=== PATIENT | female | born 1995 | race Caucasian/White ===

== ENCOUNTER 2016-06-16 00:33 | Emergency (ER) | payer SELFPAY ==
[~2016-06-16] VITALS: Ht 157.5 cm; Wt 45.0 kg
[~2016-06-16 00:33] MED LIST: CIPR500T4 PO; NITR-58 PO; PHEN-537 PO; PHEN-538 PO
[2016-06-16 00:36] VITALS: Ht 157.5 cm; Wt 45.0 kg
== END 2016-06-16 04:50 | disposition left against medical advice (07) ==
LOC: FTE 00:33
DX: Z53.21 Procedure and treatment not carried out due to patient leaving prior to being seen by health care provider (principal)

== ENCOUNTER 2016-08-31 12:22 | Emergency (ER) | payer OTHER ==
[~2016-08-31] VITALS: Ht 157.5 cm; Wt 49.5 kg
[2016-08-31 12:25] VITALS: Ht 157.5 cm; Wt 49.5 kg
[2016-08-31 13:50] LABS: URINE BLOOD (Dip) POC 3+ (NEGATIVE)
[2016-08-31] MEDS ORDERED: NITR-58 PO (15:23)
[2016-08-31] MEDS ORDERED: PHEN-537 PO (15:23)
[2016-08-31 15:37] VITALS: BP 116/66; PULSE 70; RESP 16
--- NOTE | 2016-08-31 16:19 | ERD ---
ER Documentation Chief Complaint Date/Time DATE: 08/31/16 TIME: 16:16 Chief Complaint painful urination today HPI 20-year-old female patient with no significant past medical history presents the ED complaining of dysuria that started this morning. Describes the pain as a burning sensation. States that she gets irregular menses because she has an IUD. Reports that she has gotten recurrent UTIs due to the IUD that is placed. Denies any vaginal discharge or vaginal bleeding. Reports that she has 1 sexual partner. States that she is sexually active. Reports that she is not concerned about STDs however she does want her urine to be tested for gonorrhea and chlamydia because of her recurrent urinary tract infections. Denies any abdominal pain, nausea, vomiting, diarrhea, constipation, pelvic pain, fever, flank pain. ROS All systems reviewed and are negative except as per history of present illness. Medications Home Meds Active Scripts Nitrofurantoin Monohyd Macrocr* (Macrobid*) 100 Mg Capsr, 100 MG PO BID for 7 Days, CAP Prov:WILLIS VALADEZ PA-C 08/31/16 Phenazopyridine Hcl* (Pyridium*) 100 Mg Tab, 100 MG PO TID Y for URINARY PAIN, # 8 TAB Prov:WILLIS VALADEZ PA-C 08/31/16 Phenazopyridine Hcl* (Pyridium*) 100 Mg Tab, 100 MG PO TID Y for URINARY PAIN, # 8 TAB Prov:TRISTEN SCHUSTER DO 03/05/16 Ciprofloxacin Hcl* (Ciprofloxacin Hcl*) 500 Mg Tablet, 500 MG PO BID, #14 TAB Prov:TRISTEN SCHUSTER DO 03/05/16 Ciprofloxacin Hcl* (Ciprofloxacin Hcl*) 500 Mg Tablet, 500 MG PO BID for 7 Days , TAB Prov:DOMENIC KEYS PA-C 01/17/16 Phenazopyridine Hcl* (Pyridium*) 100 Mg Tab, 100 MG PO TID Y for URINARY PAIN, # 8 TAB Prov:JJ MARTIN PA-C 12/21/15 Nitrofurantoin Monohyd Macrocr* (Macrobid*) 100 Mg Capsr, 100 MG PO BID for 7 Days, CAP Prov:JJ MARTIN PA-C 12/21/15 Phenazopyridine Hcl* (Pyridium*) 200 Mg Tab, 200 MG PO TID Y for URINARY PAIN, # 6 TAB Prov:JACKI ALVAREZ MD 12/05/15 Nitrofurantoin Monohyd Macrocr* (Macrobid*) 100 Mg Capsr, 100 MG PO BID for 7 Days, CAP Prov:JACKI ALVAREZ MD 12/05/15 Ciprofloxacin Hcl* (Ciprofloxacin Hcl*) 500 Mg Tablet, 500 MG PO BID for 7 Days , TAB Prov:DOMENIC KEYS PA-C 08/03/15 Ciprofloxacin Hcl* (Ciprofloxacin Hcl*) 500 Mg Tablet, 500 MG PO BID for 5 Days , TAB Prov:DELFINA DOE NP 02/23/15 Allergies Allergies: Coded Allergies: No Known Allergy (Unverified , 01/17/16) PMhx/Soc Medical and Surgical Hx: pt denies Medical Hx, pt denies Surgical Hx History of Surgery: No Anesthesia Reaction: No Hx Neurological Disorder: No Hx Respiratory Disorders: No Hx Cardiac Disorders: No Hx Psychiatric Problems: No Hx Miscellaneous Medical Probl: Yes (UTI) Hx Alcohol Use: No Hx Substance Use: No Hx Tobacco Use: No Smoking Status: Never smoker Physical Exam Vitals Vital Signs Date Time Temp Pulse Resp B/P Pulse Ox O2 Delivery O2 Flow Rate FiO2 08/31/16 15:37 70 16 116/66 Room Air 08/31/16 12:25 98.4 102 18 120/59 99 Physical Exam Const: [id number], well-nourished. In no acute distress. Head: Atraumatic, normocephalic Eyes: Normal Conjunctiva without injection. No purulent discharge. ENT: Normal external ear, nose. Moist oropharynx without tonsillar exudates. Non -erythematous pharynx. Uvula midline. No drooling. No trismus. Neck: No cervical midline tenderness. Full range of motion. No meningismus. No cervical lymphadenopathy. No JVD. Resp: Clear to auscultation bilaterally. No wheezing, rhonchi, rales, or crackles. No accessory muscle use. No retractions. Cardio: Regular rate and rhythm. No murmurs, rubs or gallops. Abd: Soft, nontender, non distended. Normal bowel sounds. No palpable masses. No rebound tenderness. No guarding. Negative McBurney's point. Negative psoas sign. Negative obturator sign. Skin: No petechiae or rashes Back: No midline tenderness. No CVA tenderness. Ext: No cyanosis, or edema. Neur: Awake and alert. Normal gait. Normal coordination. Psych: Normal Mood and Affect Results 24 hrs Laboratory Tests Test 08/31/16 13:49 08/31/16 13:52 Chlamydia trachomatis RNA (TMA) NOT DETECTED Chlamydia/GC Comment SEE NOTE Neisseria gonorrhoeae RNA (TMA) NOT DETECTED Bedside Urine pH (LAB) 5.5 Bedside Urine Protein (LAB) 2+ Bedside Urine Glucose (UA) Negative Bedside Urine Ketones (LAB) Negative Bedside Urine Blood 3+ Bedside Urine Nitrite (LAB) Negative Bedside Urine Leukocyte Esterase (L 2+ Procedures/MDM This is a 20-year-old female patient with no significant past medical history presents the ED complaining of dysuria that started earlier today. Patient is afebrile and nontoxic-appearing. Patient has normal vital signs. A urine dip showed 2+ leukocyte esterase with 3+ hematuria. A urine culture was sent back in February 2016 and patient was sensitive to most of the antibiotics including Macrobid. Therefore patient will be treated with a prescription for Macrobid. Patient is appropriate for outpatient management. Low suspicion for a pyelonephritis. Patient denies any flank pain. No CVA tenderness. Low suspicion for sepsis, ectopic , acute abdomen, appendicitis, cholecystitis, bowel obstruction, PID, ovarian torsion, or other emergent conditions. Discharge medications: Macrobid, Pyridium Follow up with primary care physician in 1-2 days. Other control method resources were given to patient to discuss with her [employer]. Instructed patient to return to the ED sooner for any worsening symptoms. Patient's questions were answered. Patient understood and agreed with discharge plan. Patient discharged stable. Departure Diagnosis: Primary Impression: Dysuria Condition: Stable Patient Instructions: Dysuria, Control Options, Urinary Tract Infections in Women, Control Methods Referrals: COMMUNITY CLINICS YOU HAVE RECEIVED A MEDICAL SCREENING EXAM AND THE RESULTS INDICATE THAT YOU DO NOT HAVE A CONDITION THAT REQUIRES URGENT TREATMENT IN THE EMERGENCY DEPARTMENT. FURTHER EVALUATION AND TREATMENT OF YOUR CONDITION CAN WAIT UNTIL YOU ARE SEEN IN YOUR DOCTORS OFFICE WITHIN THE NEXT 1-2 DAYS. IT IS YOUR RESPONSIBILITY TO MAKE AN APPOINTMENT FOR FOLOW-UP CARE. IF YOU HAVE A PRIMARY DOCTOR --you should call your primary doctor and schedule an appointment IF YOU DO NOT HAVE A PRIMARY DOCTOR YOU CAN CALL OUR PHYSICIAN REFERRAL HOTLINE AT IF YOU CAN NOT AFFORD TO SEE A PHYSICIAN YOU CAN CHOSE FROM THE FOLLOWING [facility] CLINICS [facility] [address] [facility] [address] [facility] [address] [facility] [address] [facility] [address] [facility]. [facility] [address] [facility] [facility] YOU HAVE RECEIVED A MEDICAL SCREENING EXAM AND THE RESULTS INDICATE THAT YOU DO NOT HAVE A CONDITION THAT REQUIRES URGENT TREATMENT IN THE EMERGENCY DEPARTMENT. FURTHER EVALUATION AND TREATMENT OF YOUR CONDITION CAN WAIT UNTIL YOU ARE SEEN IN YOUR DOCTORS OFFICE WITHIN THE NEXT 1-2 DAYS. IT IS YOUR RESPONSIBILITY TO MAKE AN APPOINTMENT FOR FOL- CARE. IF YOU HAVE A PRIMARY DOCTOR --you should call your primary doctor and schedule and appointment IF YOU DO NOT HAVE A PRIMARY DOCTOR YOU CAN CALL OUR PHYSICIAN REFERRAL HOTLINE AT . IF YOU CAN NOT AFFORD TO SEE A PHYSICIAN YOU CAN CHOSE FROM THE FOLLOWING [facility] INSTITUTIONS: [facility] [address] [place] [address] [facility] [address] [place] [address] [facility] [address] [place] [address] [employer] [address] [facility] [address] [place], [place] [id number] OFFICE FAX DR.ABUSLEME DIPESH [address] [place] [address] DR. ORTIZ BIMBLE [address] [place], [place] [id number] [address] BERMUDEZ, [facility] [address] [facility], [id number] [address] [address] [address] [place] [phone] [facility] [address] [place], [place] [id number] [address] [facility] [id number] - [place] [place] [address] [facility] [id number] MITTAL, JAKE [address] [facility] [address], [facility] [id number] CHERISE DUKES [address] [place], [place] [phone] [facility] Hours: 8:00 am - 5:00 pm Additional Instructions: Call your primary care doctor TOMORROW for an appointment during the next 2-3 days.See the doctor sooner or return here if your condition worsens before your appointment time. WILLIS VALADEZ PA-C August 31, 2016 16:19
== END 2016-08-31 15:38 | disposition home or self-care (01) ==
LOC: FTE 12:22
DX: R30.0 Dysuria (principal)
CPT/HCPCS: 81003; 87086; 87591; 99283